=== PATIENT | male | born 1985 | race African-American/Black ===

== ENCOUNTER 2020-01-28 05:37 | Emergency (ER) | payer OTHER ==
[~2020-01-28] VITALS: Ht 170.2 cm; Wt 95.5 kg
[2020-01-28] MEDS ORDERED: NAPR250T4 PO (05:45)
[2020-01-28] MEDS ORDERED: CYCLOBENZAPRINE 10 MG TAB PO ONE (07:00)
[2020-01-28] MEDS ORDERED: KETOROLAC 30 MG/ML VIAL (J1885) IM ONE (07:00)
--- NOTE | 2020-01-28 07:56 | REP ---
Lumbar spine five views: There are no comparisons. There is mild scoliosis convex left in the inferior lumbar spine. Vertebral body heights, interspacing alignment are normal otherwise. There is no spondylolysis or spondylolisthesis. The pedicles and facets are unremarkable. The sacroiliac articulations are unremarkable. Impression: Mild scoliosis, otherwise, negative lumbar spine. Electronically Signed by Pb Parra MD 01/28/2020 07:47 A
[2020-01-28] MEDS ORDERED: CYCL5TAB PO (09:24)
[2020-01-28 09:28] VITALS: BP 115/58
== END 2020-01-28 09:54 | disposition home or self-care (01) ==
LOC: M ED 05:37
DX: S39.012A Strain of muscle, fascia and tendon of lower back, initial encounter (principal); M41.9 Scoliosis, unspecified; X50.0XXA Overexertion from strenuous movement or load, initial encounter; Y92.099 Unspecified place in other non-institutional residence as the place of occurrence of the external cause; Y93.89 Activity, other specified; Y99.9 Unspecified external cause status
CPT/HCPCS: 72110; 96372; 99283; J1885

== ENCOUNTER 2020-05-06 06:23 | Emergency (ER) | payer OTHER ==
[~2020-05-06] VITALS: Ht 170.2 cm; Wt 90.0 kg
[~2020-05-06 06:23] MED LIST: CYCL5TAB PO; NAPR250T4 PO
[2020-05-06] MEDS ORDERED: LIDOCAINE 5% (LIDODERM) PATCH TD ONE (07:30)
--- NOTE | 2020-05-06 08:26 | REP ---
Clinical: Left tibial tenderness. Technique: AP and lateral views of the left tibia / fibula. Findings: No acute fracture or dislocation. Skeletal structures, joint spaces, and surrounding soft tissues appear normal. No subcutaneous emphysema or foreign body. Impression: No acute fracture dislocation. No obvious abnormality by radiographic evaluation. Electronically Signed by Tristen Bermeo MD 05/06/2020 08:18 A
[2020-05-06] MEDS ORDERED: LIDO5DIS41 TOP (08:48)
[2020-05-06] MEDS ORDERED: CYCL5TAB PO (08:48)
[2020-05-06] MEDS ORDERED: IBUP80TA PO (08:48)
[2020-05-06 08:57] VITALS: BP 136/78
[2020-05-06] MEDS ORDERED: **NOTE PATIENT COMMENT** MISC XX ONE (21:00)
== END 2020-05-06 08:59 | disposition home or self-care (01) ==
LOC: M ED 06:23
DX: S39.012A Strain of muscle, fascia and tendon of lower back, initial encounter (principal); M79.662 Pain in left lower leg; X58.XXXA Exposure to other specified factors, initial encounter; Y92.9 Unspecified place or not applicable; Y93.9 Activity, unspecified; Y99.9 Unspecified external cause status; F32.9 Major depressive disorder, single episode, unspecified

== ENCOUNTER 2020-05-21 05:23 | Emergency (ER) | payer OTHER ==
[~2020-05-21] VITALS: Ht 172.7 cm; Wt 100.1 kg
[~2020-05-21 05:23] MED LIST changes: +IBUP80TA PO; +LIDO5DIS41 TOP
[2020-05-21] MEDS ORDERED: NS 1,000 ML IV ONE (05:45)
[2020-05-21 06:22] LABS: BASO % 0.7 % (0.0-1.0); EOS # 0.2 10^3/uL (0.0-0.5); EOS % 4.1 % (0.0-3.0); HEMATOCRIT 44.9 % (42.0-52.0); HEMOGLOBIN 15.4 g/dl (13.5-17.5); LYMPH # 1.8 10^3/uL (1.5-5.0); LYMPH % 43.5 % (24.0-44.0); MEAN CORPUSCULAR HEMOGLOBIN 29.3 pg (27.0-33.0); MEAN CORPUSCULAR HGB CONC 34.3 g/dl (32.0-36.5); MEAN CORPUSCULAR VOLUME 85.4 fl (80.0-96.0); MONO # 0.3 10^3/uL (0.0-0.8); MONO % 7.2 % (0.0-5.0); NEUTROPHILS # 1.8 10^3/uL (1.5-8.5); PLATELET COUNT, AUTOMATED 212 10^3/uL (150-450); RED BLOOD COUNT 5.26 10^6/uL (4.30-6.10); WHITE BLOOD COUNT 4.2 10^3/uL (4.0-10.0)
[2020-05-21 06:43] LABS: ALBUMIN 3.9 GM/DL (3.2-5.2); BILIRUBIN,DIRECT 0.2 MG/DL (0.0-0.2); BILIRUBIN,TOTAL 0.7 MG/DL (0.2-1.0); TOTAL PROTEIN 7.7 GM/DL (6.4-8.2)
[2020-05-21 06:59] LABS: ACETAMINOPHEN LEVEL < 2.0 UG/ML (10.0-30.0); BLOOD UREA NITROGEN 13 MG/DL (7-18); CALCIUM LEVEL 8.9 MG/DL (8.5-10.1); CARBON DIOXIDE LEVEL 27 MEQ/L (21-32); CHLORIDE LEVEL 107 MEQ/L (98-107); CREATININE FOR GFR 1.21 MG/DL (0.70-1.30); ETHYL ALCOHOL (ETHANOL) < 0.003 % (0.000-0.010); GLOMERULAR FILTRATION RATE > 60.0 (>60); GLUCOSE, FASTING 102 MG/DL (70-100); SALICYLATE LEVEL < 1.7 MG/DL (5.0-30.0); SODIUM LEVEL 138 MEQ/L (136-145)
[2020-05-21 07:56] LABS: AMPHETAMINES LEVEL URINE NEGATIVE (NEGATIVE); BARBITURATES URINE NEGATIVE (NEGATIVE); BENZODIAZEPINES URINE NEGATIVE (NEGATIVE); CANNABINOIDS URINE NEGATIVE (NEGATIVE); COCAINE METABOLITE URINE NEGATIVE (NEGATIVE); METHADONE URINE NEGATIVE (NEGATIVE); OPIATES URINE NEGATIVE (NEGATIVE); PHENCYCLIDINE URINE NEGATIVE (NEGATIVE)
[2020-05-21] MEDS ORDERED: NS 1,000 ML IV SCH (10:06)
[2020-05-21 11:30] VITALS: BP 133/77
== END 2020-05-21 11:50 | disposition short-term general hospital (02) ==
LOC: M ED 05:23
DX: Z63.4 Disappearance and death of family member (principal); R45.851 Suicidal ideations
CPT/HCPCS: 80047; 80048; 80076; 80307; 82550; 82803; 84443; 85025; 93041; 94760; 96360; 96361; 99285; G0480

== ENCOUNTER → 2020-06-22 | Emergency (ER) | payer OTHER ==
[~2020-06-22] MED LIST changes: +KETOROLAC 60MG 2ML VIAL ONE; +LIDOCAINE 5% (LIDODERM) PATCH ONE; +methylPREDNISolone 125MG 2ML VIAL ONE
== END | disposition home or self-care (01) ==
LOC: M ED 06:18
DX: M54.5 Low back pain (principal)
CPT/HCPCS: 96372; 99283; J1885; J2930